=== PATIENT | female | born 1990 | race Caucasian/White ===

== ENCOUNTER 2020-07-31 10:36 | Day surgery (SDC) | payer OTHER ==
[~2020-07-31] VITALS: Ht 162.6 cm; Wt 64.0 kg
[2020-07-31] MEDS ORDERED: ULTRAM 50MG TAB50 MG PO (11:05)
[2020-07-31] MEDS ORDERED: PEPCID AC 10MG10 MG PO (11:06)
[2020-07-31] MEDS ORDERED: ALOE VERA CONCE1 CAP PO (11:06)
[2020-07-31] MEDS ORDERED: ZOFRAN 4MG T4 MG/TAB PO (11:06)
[2020-07-31] MEDS ORDERED: ACIDOPHILIS PO (11:07)
[2020-07-31] MEDS ORDERED: PRENATAL TABLET PO (11:07)
[2020-07-31 11:15] VITALS: BP 113/82; PULSE 105; TEMP 97.4
[2020-07-31 12:55] VITALS: BP 116/73; PULSE 91
--- NOTE | 2020-07-31 12:55 | NUR ---
Patient checked in by MAYCOL Hunter.
--- NOTE | 2020-07-31 13:05 | NUR ---
Patient given juice and muffin at this time. Vitals stable. Spouse at bedside.
[2020-07-31 13:15] VITALS: BP 105/73; PULSE 79
[2020-07-31 13:30] VITALS: BP 107/79; PULSE 95
--- NOTE | 2020-07-31 13:30 | NUR ---
Patient tolerated food and drink without any nausea or vomiting. Vitals stable.
[2020-07-31 13:45] VITALS: BP 111/82; PULSE 78
--- NOTE | 2020-07-31 13:55 | NUR ---
Dismissal instructions gone over with patient and patient's spouse. Both verbalize understanding and all questions answered.
--- NOTE | 2020-07-31 14:00 | NUR ---
Patient discharaged to private vehicle at patient enterance via wheelchair without any complications. Patient and family leave thanking staff for services.
== END 2020-07-31 14:00 | disposition home or self-care (01) ==
LOC: SDCO 10:36
DX: K52.9 Noninfective gastroenteritis and colitis, unspecified (principal); K50.012 Crohn's disease of small intestine with intestinal obstruction; K21.9 Gastro-esophageal reflux disease without esophagitis; R93.3 Abnormal findings on diagnostic imaging of other parts of digestive tract; R93.5 Abnormal findings on diagnostic imaging of other abdominal regions, including retroperitoneum; Z20.822 Contact with and (suspected) exposure to COVID-19; Z79.899 Other long term (current) drug therapy; Z87.891 Personal history of nicotine dependence
CPT/HCPCS: J2704; J7030

== ENCOUNTER 2021-06-11 10:31 | Day surgery (SDC) | payer OTHER ==
[~2021-06-11] VITALS: Ht 162.6 cm; Wt 83.8 kg
[~2021-06-11 10:31] MED LIST: ACIDOPHILIS PO; ALOE VERA CONCE1 CAP PO; PEPCID AC 10MG10 MG PO; PRENATAL TABLET PO; ULTRAM 50MG TAB50 MG PO; ZOFRAN 4MG T4 MG/TAB PO
[2021-06-11] MEDS ORDERED: ALOE VERA CONCE1 CAP PO (12:17)
[2021-06-11] MEDS ORDERED: APRISO0.375 GM PO (12:20)
[2021-06-11] MEDS ORDERED: PROTONIX 40MG T40 MG PO (12:20)
[2021-06-11] MEDS ORDERED: HUMIRA40 MG/0.8 SQ (12:21)
[2021-06-11 12:22] VITALS: BP 122/97; PULSE 95; TEMP 98.2
[2021-06-11] MEDS ORDERED: ISIBLOOM 28 DA1 EACH PO (12:34)
[2021-06-11 13:20] VITALS: BP 114/78; PULSE 104; TEMP 98
[2021-06-11 13:35] VITALS: BP 121/97; PULSE 105; TEMP 98
[2021-06-11 13:50] VITALS: BP 118/82; PULSE 88; TEMP 98
--- NOTE | 2021-06-11 14:27 | NUR ---
1320 Pt returns from endo procedure via cart and RN assist to [facility]. Pt ambulates from cart to recliner with RN assist. Monitors on and alarms set. Call light within reach. Report received from MAYCOL SANCHEZ. Pt alert and oriented. Pt requests SPRITE AND A MUFFIN. Pt denies any pain or nausea, JUST FEELING TIRED. 1335 Pt taking food and drink well. No complications noted. 1350 IV SITE TAKEN OUT. 1355 Discharge instructions given to pt. All questions answered to HER satisfaction. Handed to pt are a thank you card and discharge information. 1405 Pt transferred out of the hospital via wheelchair and THIS NURSE'S assist, to private vehicle driven by FRIEND, IFRAH.
== END 2021-06-11 14:30 | disposition home or self-care (01) ==
LOC: SDCO 10:31
DX: K50.012 Crohn's disease of small intestine with intestinal obstruction (principal); Z87.891 Personal history of nicotine dependence
CPT/HCPCS: J2704; J3010; J7120